=== PATIENT | female | born 1940 | race Caucasian/White ===

== ENCOUNTER 2017-01-27 09:12 | Day surgery (SDC) | payer OTHER, MEDICARE ==
[2017-01-27 09:13] VITALS: BMI 35.9
[2017-01-27] MEDS ORDERED: LIDOCAINE HCL/PF 2% SDV 5ML VIAL ONE (09:36)
[2017-01-27] MEDS ORDERED: PROPOFOL 40 ML ONE (09:36)
[2017-01-27 10:44] VITALS: TEMP 97.9
[2017-01-27 11:59] VITALS: BP 120/65; PULSE 84
--- NOTE | 2017-01-28 11:26 | PATH ---
Surgical Pathology Report Patient Name: SHAKA BAHENA [facility] Rec. #: [id number] /Age/Gender: 1940 (Age: 76) / F Account: [id number] Location: ASU-ENDOSCOPY Taken: 01/27/2017 Received: 01/27/2017 Reported: 01/28/2017 Physicians: Marcel Haley D.O. Specimen(s) Received A: POLYPS PROXIMAL TRANSVERSE COLON SNARE & BX. B: BX DISTAL TRANSVERSE COLON POLYP C: BX SIGMOID COLON POLYP D: BX RECTAL SIGMOID POLYP (COLD SNARE) E: POLYP RECTUM (COLD SNARE) Clinical History Proctitis, denies blood Diverticulosis, colon polyps, hemorrhoids Final Diagnosis A. COLON, PROXIMAL TRANSVERSE, BIOPSY: SESSILE SERRATED POLYP. B. COLON, DISTAL TRANSVERSE, BIOPSY: TUBULAR ADENOMA. C. COLON, SIGMOID, BIOPSY: HYPERPLASTIC POLYP. D. COLON, RECTAL SIGMOID, BIOPSY HYPERPLASTIC POLYP. E. RECTUM, BIOPSY TUBULAR ADENOMA. Comment: Sessile serrated polyps are not dysplastic (adenomatous). They share morphologic features with hyperplastic polyps and, in the past, have been referred to as such. However, recent studies indicate that they harbor BRAF mutations and may represent neoplastic precursors to a subset of sporadic, microsatellite unstable colon cancers. They are generally treated and followed similar to colonic adenomas. CHANDU Bautista and MEAGAN Goncalves Gastroenterology 2010, 139(5):[id number]. Electronically Signed Rubin Segura M.D. Gross Description A. Received in formalin, labeled "polyps proximal transverse colon (snared and biopsy)" are 3 clemens, irregular portions of soft tissue measuring 0.1-0.2 cm. in greatest dimension. The specimens are submitted in toto in one cassette. B. Received in formalin, labeled "biopsy distal transverse colon polyp" is a clemens, irregular portion of soft tissue measuring 0.3 cm. in greatest dimension. The specimen is submitted in toto in one cassette. C. Received in formalin, labeled "biopsy sigmoid colon polyp" is a clemens, irregular portion of soft tissue measuring 0.2 cm. in greatest dimension. The specimen is submitted in toto in one cassette. D. Received in formalin, labeled "rectal sigmoid polyp (cold snare)" is a clemens, irregular portion of soft tissue measuring 0.2 cm. in greatest dimension. The specimen is submitted in toto in one cassette. E. Received in formalin, labeled "polyp rectum (cold snare)" is a clemens, irregular portion of soft tissue measuring 0.1 cm. in greatest dimension. The specimen is submitted in toto in one cassette. [facility]/01/27/2017 [facility]/01/27/2017
[2017-02-02 08:06] LABS: IMMUNOGLOBULIN A QN 206 mg/dL (64-422)
== END 2017-01-27 11:45 | disposition home or self-care (01) ==
LOC: JASU-ENDO 09:12
PROVIDERS: ATTEND Internal Medicine Gastroenterology
PROC: 0DBN8ZX Excision of Sigmoid Colon, Via Natural or Artificial Opening Endoscopic, Diagnostic (ICD-10-PCS; 2017-01-27)
PROC: 0DBE8ZX Excision of Large Intestine, Via Natural or Artificial Opening Endoscopic, Diagnostic (ICD-10-PCS; 2017-01-27)
PROC: 3E0H8GC Introduction of Other Therapeutic Substance into Lower GI, Via Natural or Artificial Opening Endoscopic (ICD-10-PCS; 2017-01-27)
PROC: 0DBL8ZX Excision of Transverse Colon, Via Natural or Artificial Opening Endoscopic, Diagnostic (ICD-10-PCS; principal; 2017-01-27 09:00)
DX: Z12.11 Encounter for screening for malignant neoplasm of colon (principal); Z80.0 Family history of malignant neoplasm of digestive organs; K57.30 Diverticulosis of large intestine without perforation or abscess without bleeding; D12.7 Benign neoplasm of rectosigmoid junction; D12.5 Benign neoplasm of sigmoid colon; D12.3 Benign neoplasm of transverse colon; K64.8 Other hemorrhoids
CPT/HCPCS: 36415; 82784; 83516; 88305-TC

== ENCOUNTER 2017-07-29 15:50 | Inpatient (IN) | payer OTHER, MEDICARE ==
--- NOTE | 2017-07-29 17:32 | PDOC ---
Attending Attestation - Resident Resident Name: Talat Mosquera - ED Attending Attestation I have performed the following: I have examined & evaluated the patient, The case was reviewed & discussed with the resident, I agree w/resident's findings & plan, Exceptions are as noted - HPI HPI: 07/29/17 17:29 77yo F hx breast ca in remission, HTN, HL p/w decreased PO appetite, dry heaving for 1 week. Saw PCP yesterday who sent her to ED after she had a WBC 1.3 and platelets of 81. On follow up today, pt's PMD advised her to present to the ED for admission for work up of her pancytopenia. Pt denies fevers, chills, cp, sob, abd pain, le edema, rash, headache, focal weakness or numbness. - Physicial Exam PE: 07/29/17 19:01 GENERAL: Awake, alert, and fully oriented, in no acute distress HEAD: No signs of trauma EYES: PERRLA, EOMI, sclera anicteric, conjunctiva clear ENT: Auricles normal inspection, hearing grossly normal, nares patent, oropharynx clear without exudates. Moist mucosa NECK: Normal ROM, supple, no lymphadenopathy, JVD, or masses LUNGS: Breath sounds equal, clear to auscultation bilaterally. No wheezes, and no crackles HEART: Regular rate and rhythm, normal S1 and S2, no murmurs, rubs or gallops ABDOMEN: Soft, nontender, normoactive bowel sounds. No guarding, no rebound. No masses EXTREMITIES: Normal range of motion, no edema. No clubbing or cyanosis. No cords, erythema, or tenderness NEUROLOGICAL: Normal speech, cranial nerves intact, negative pronator drift, 5/ 5 strength in all 4 extremities, normal sensation to light touch in all 4 extremities, normal cerebellar exam, normal gait, normal reflexes and tone SKIN: Warm, Dry, normal turgor, no rashes or lesions noted. - Medical Decision Making 07/29/17 18:00 77yo F hx breast ca in remission p/w pancytopenia and for admission for work up. Vitals unremarkable. Exam unremarkable. Plan: -labs -monitor -c/s ID -admit 07/29/17 19:[address] Barker for further management. Case discussed in detail with admitting physician including history, physical exam and ancillary studies. Admitting physician has assumed care for the patient, will follow all pending diagnostics and will complete the evaluation and treatment. Heart Score/ECG Review #1 07/29/17 18:59 NSR, rate 77, normal axis, normal intervals, no ESTRELLA
[2017-07-29] MEDS ORDERED: SODIUM CHLORIDE 0.9% 1000 ML INFUS.BAG IV ONE (17:34)
--- NOTE | 2017-07-29 17:41 | PDOC ---
History of Present Illness - General History Source: Patient Exam Limitations: No Limitations - History of Present Illness Initial Comments: 07/29/17 17:54 The patient is a 77F with a PMH of breast CA, HTN, HLD who was sent here by her PCP for an admission/workup. The patient came to [facility] ED yesterday after being sent by her PCP's office for a WBC of 1.3 and a PLT of 81. Repeat labs yesterday confirmed these findings. She was discharged home and called by her PCP, Dr. Barker, this morning after he spoke with a dry cure worker who wants the patient to stay in the hospital for workup to find out why she is pancytopenic. The patient has been feeling unwell for the past week, hasn't been able to eat for a few days and can't hold anything down. She admits to dry heaving but no vomiting. PCP: Mj <Talat Mosquera - Last Filed: 07/29/17 18:21> <Alec Olmstead - Last Filed: 07/29/17 19:00> - General Chief Complaint: Vomiting/Diarrhea Stated Complaint: REVISIT/ DIZZINESS (PCP SENT) Time Seen by Provider: 07/29/17 16:55 Past History - Past Medical History Cancer: Yes (LEFT BREAST) HTN: Yes Hypercholesterolemia: Yes - Surgical History Orthopedic Surgery: Yes (B/L TKR, B/L THR) - Psycho/Social/Smoking Cessation Hx Anxiety: No Suicidal Ideation: No Smoking Status: Yes Smoking History: Current every day smoker Years of Tobacco Use: 50 Have you smoked in the past 12 months: Yes Number of Cigarettes Smoked Daily: 7 Cigars Per Day: 0 Information on smoking cessation initiated: No Hx Alcohol Use: No Drug/Substance Use Hx: No Substance Use Type: None <Talat Mosquera - Last Filed: 07/29/17 18:21> <Alec Olmstead - Last Filed: 07/29/17 19:00> - Past Medical History Allergies/Adverse Reactions: Allergies Allergy/AdvReac Type Severity Reaction Status Date / Time No Known Drug Allergies Allergy Verified 07/29/17 17:51 bees Allergy Uncoded 07/29/17 16:04 tape Allergy Uncoded 07/29/17 16:04 Home Medications: Ambulatory Orders Clonazepam [Klonopin -] 1 mg PO HS 01/17/12 Sertraline HCl [Zoloft] 100 mg PO HS 01/17/12 Atenolol [Tenormin -] 25 mg PO DAILY 07/15/13 Aspirin [ASA -] 81 mg PO DAILY 07/16/13 Fenofibrate Nanocrystallized [Tricor] 60 mg PO DAILY 07/16/13 Omeprazole [Prilosec (RX)] 40 mg PO ASDIR 02/23/15 Amlodipine Besylate [Norvasc -] 5 mg PO DAILY 01/27/17 Famotidine [Pepcid -] 40 mg PO ASDIR 07/29/17 Review of Systems - Review of Systems Able to Perform ROS?: Yes Is the patient limited Grenadian proficient: No Constitutional: No: Chills, Fever Respiratory: No: Cough, Shortness of Breath Cardiac (ROS): No: Chest Pain ABD/GI: No: Constipated, Diarrhea, Nausea, Vomiting, Other (abd pain) : No: Burning, Dysuria Neurological: No: Headache, Numbness, Tingling, Weakness <Talat Mosquera - Last Filed: 07/29/17 18:21> *Physical Exam - Vital Signs Last Vital Signs Temp Pulse Resp BP Pulse Ox 99 F 84 17 104/57 95 07/29/17 16:04 07/29/17 16:04 07/29/17 16:04 07/29/17 16:04 07/29/17 16:45 - Physical Exam General Appearance: Yes: Nourished, Appropriately Dressed, Obese HEENT: positive: Normal Voice, Hearing Grossly Normal Respiratory/Chest: positive: Lungs Clear, Normal Breath Sounds. negative: Chest Tender, Labored Respiration, Rapid RR, Decreased Breath Sounds, Paradoxal Breathing, Crackles, Rales, Stridor, Wheezing Cardiovascular: positive: Regular Rhythm, Regular Rate, S1, S2. negative: Diastolic Murmur, Systolic Murmur Gastrointestinal/Abdominal: positive: Flat, Soft. negative: Tender, Distended, Guarding, Rebound, Tenderness Extremity: negative: Coldness, Cyanosis, Calf Tenderness, Erythema Integumentary: positive: Dry, Warm. negative: Clammy, Swelling, Ecchymosis Neurologic: positive: Fully Oriented, Alert, Normal Mood/Affect, Normal Response , Motor Strength 5/5 <Talat Mosquera - Last Filed: 07/29/17 18:21> - Vital Signs Last Vital Signs Temp Pulse Resp BP Pulse Ox 99 F 84 17 104/57 95 07/29/17 16:04 07/29/17 16:04 07/29/17 16:04 07/29/17 16:04 07/29/17 16:45 <Alec Olmstead - Last Filed: 07/29/17 19:00> ED Treatment Course - LABORATORY CBC & Chemistry Diagram: 07/29/17 18:00 07/29/17 18:00 - RADIOLOGY Radiology Studies Ordered: Category Date Time Status CHEST X-RAY PORTABLE* [RAD] Stat Radiology 07/29/17 17:34 Ordered <Talat Mosquera - Last Filed: 07/29/17 18:21> - LABORATORY CBC & Chemistry Diagram: 07/29/17 18:00 07/29/17 18:00 - ADDITIONAL ORDERS Additional order review: Laboratory Results 07/29/17 07/29/17 07/29/17 18:00 18:00 18:00 PT with INR 10.90 INR 0.99 PTT (Actin FS) 29.0 VBG pH 7.36 POC VBG pCO2 45.2 POC VBG pO2 49.8 H Mixed VBG HCO3 24.7 Blood Type Cancelled Antibody Screen Cancelled Spec Expiration Date Cancelled 07/29/17 18:00 RBC 4.16 MCV 90.8 MCHC 34.4 RDW 14.2 MPV 10.4 Neutrophils % 52.1 D Lymphocytes % 33.0 D Monocytes % 13.5 H D Eosinophils % 0.2 Basophils % 1.2 D <Alec Olmstead - Last Filed: 07/29/17 19:00> Medical Decision Making - Medical Decision Making 07/29/17 18:02 The patient is a 77F that presented with thrombocytopenia and leukopenia yesterday. I have spoken with Dr. Barker who wants the patient admitted. The order has been placed. A page to Dr. Cooney (or partner) has been placed. Sepsis workup has been followed. Will reassess when labs return. 07/29/17 18:21 I have spoken with Dr. Cooney, hematology, who will see the patient tomorrow. He wants B12, folate, FT4, and TSH ordered. I have ordered these. He also suggests an ID consult. <Talat Mosquera - Last Filed: 07/29/17 18:21> *DC/Admit/Observation/Transfer - Discharge Dispostion Admit: Yes <Talat Mosquera - Last Filed: 07/29/17 18:21> <Alec Olmstead - Last Filed: 07/29/17 19:00> Diagnosis at time of Disposition: Thrombocytopenia Leukopenia Qualifiers: Leukopenia type: unspecified Qualified Code(s): D72.819 - Decreased white blood cell count, unspecified - Referrals Referrals: Jimenez Barker MD [Primary Care Provider] -
[2017-07-29 18:11] LABS: EOSINOPHIL 0.2 % (0-4.5)
[2017-07-29 18:13] LABS: BASOPHIL 1.2 % (0-2.0); MCH 31.2 pg (25.7-33.7); MCHC 34.4 g/dl (32.0-36.0); MEAN CELL VOLUME 90.8 fl (80-96); MEAN PLT VOLUME 10.4 fl (7.5-11.1); NEUTROPHILS 52.1 % (42.8-82.8); PLATELET COUNT 79 K/MM3 (134-434); RDW 14.2 % (11.6-15.6)
[2017-07-29] MEDS ORDERED: CEFEPIME HCL 2 GM VIAL (RESTRICTED TO ID) IVPB ONE (18:25)
[2017-07-29 18:28] LABS: INR 0.99 (0.82-1.09); PROTHROMBIN TIME (PATIENT) 10.9 SEC (9.98-11.88)
[2017-07-29 18:29] LABS: VENOUS PH 7.36 (7.32-7.42)
[2017-07-29 18:30] LABS: VENOUS BLOOD GAS HCO3 24.7 meq/L (19-25)
[2017-07-29 18:39] LABS: ALBUMIN 3.7 g/dl (3.4-5.0); ANION GAP 7 (8-16); BILIRUBIN,TOTAL 0.6 mg/dL (0.2-1.0); CALCIUM 8.6 mg/dL (8.5-10.1); CO2 26 mmol/L (21-32); CREATININE 1.1 mg/dL (0.55-1.02); GLUCOSE,RANDOM 91 mg/dL (74-106); SGOT/AST 43 U/L (15-37); SGPT/ALT 28 U/L (12-78); TOT PROT 6.7 g/dl (6.4-8.2)
[2017-07-29 18:42] LABS: ALK PHOS 52 U/L (45-117); CPK 192 IU/L (26-192); TROPONIN I 0.02 ng/ml (0.00-0.05)
[2017-07-29] MEDS ORDERED: CEFEPIME 1 GM/100 ML BAG PRE-DOCKED IVPB ONE (19:30)
[2017-07-29 19:31] LABS: ALBUMIN 3.6 g/dl (3.4-5.0); ALK PHOS 51 U/L (45-117); ANION GAP 5 (8-16); BILIRUBIN,TOTAL 0.6 mg/dL (0.2-1.0); CALCIUM 8.8 mg/dL (8.5-10.1); CO2 28 mmol/L (21-32); CREATININE 1.1 mg/dL (0.55-1.02); GLUCOSE,RANDOM 89 mg/dL (74-106); SGOT/AST 41 U/L (15-37); SGPT/ALT 28 U/L (12-78); TOT PROT 6.8 g/dl (6.4-8.2)
[2017-07-29 19:37] LABS: FREE T4 1.13 ng/dl (0.76-1.46); THYROID STIMULATING HORMONE 1.27 uIU/ml (0.358-3.74)
[2017-07-29 19:49] LABS: URINE APPEARANCE SLCLOUDY; URINE BILIRUBIN NEGATIVE (NEGATIVE); URINE BLOOD NEGATIVE (NEGATIVE); URINE COLOR AMBER; URINE GLUCOSE (UA) NEGATIVE (NEGATIVE); URINE KETONE NEGATIVE (NEGATIVE); URINE LEUK ESTERASE NEGATIVE (NEGATIVE); URINE NITRITE NEGATIVE (NEGATIVE); URINE PROTEIN NEGATIVE (NEGATIVE)
[2017-07-29 20:42] VITALS: BMI 32.2
[2017-07-30] MEDS ORDERED: CEFEPIME HCL 1 GM VIAL (RESTRICTED TO ID) ONE ×3 (01:50→18:25)
[2017-07-30] MEDS ORDERED: DEXTROSE 5%-WATER 100 ML IVPB ONE ×3 (01:50→18:25)
[2017-07-30] MEDS ORDERED: CEFEPIME HCL 1 GM VIAL (RESTRICTED TO ID) IVPB SCH (02:00)
[2017-07-30] MEDS: CEFEPIME 1 GM in DEXTROSE 5%-WATER 100 ML IVPB SCH ×3 (02:21→18:28)
[2017-07-30 07:29] LABS: BASOPHIL 0.5 % (0-2.0); EOSINOPHIL 0.3 % (0-4.5); MCH 31.1 pg (25.7-33.7); MCHC 34.1 g/dl (32.0-36.0); MEAN PLT VOLUME 9.4 fl (7.5-11.1); NEUTROPHILS 45.4 % (42.8-82.8); PLATELET COUNT 71 K/MM3 (134-434); RDW 13.7 % (11.6-15.6); WHITE BLOOD COUNT 2.3 K/mm3 (4.0-10.0)
[2017-07-30 08:04] LABS: INR 1.04 (0.82-1.09); PROTHROMBIN TIME (PATIENT) 11.4 SEC (9.98-11.88)
[2017-07-30 08:06] LABS: ACTIVATED PTT 27.8 SECONDS (26.9-34.4); ALBUMIN 3.3 g/dl (3.4-5.0); ANION GAP 9 (8-16); BILIRUBIN,TOTAL 0.9 mg/dL (0.2-1.0); CALCIUM 8.3 mg/dL (8.5-10.1); CO2 26 mmol/L (21-32); CREATININE 1.2 mg/dL (0.55-1.02); GLUCOSE,RANDOM 83 mg/dL (74-106); LDH 207 U/L (84-246); SGOT/AST 41 U/L (15-37); SGPT/ALT 28 U/L (12-78); TOT PROT 6.1 g/dl (6.4-8.2)
[2017-07-30 09:06] LABS: ALK PHOS 48 U/L (45-117)
--- NOTE | 2017-07-30 11:24 | CON.ID ---
Consult Consult Specialty:: INFECTIOUS DISEASE Reason for Consultation:: weakness, low wbc/platelet - History of Present Illness History of Present Illness: 77 y.o. female with history of Breast CA s/p Lt lumpectomy, HTN, HLD, b/l THR, b. TKR admitted for leukopenia/thrombocytopenia noted by PMD during office visit. Pt states she has not been feeling well for the past week. States she had a temp of 100F at home. Denies chills, sore throat, h/a, shortness of breath but +dry cough for past couple of weeks. Had some nausea and a loose BM but resolved. Denies sick contact or recent travel. - History Source History Provided By: Patient Limitations to Obtaining History: No Limitations - Past Medical History FRAME BANDER: No: Alzheimer's, CVA, Dementia, Migraine, Multiple Sclerosis, Peripheral Neuropathy, Parkinson's, Seizure, Syncope, TIA, Vertigo, Other Cardio/Vascular: No: AFIB, Aneurysm, Aortic Insufficiency, Aortic Stenosis, CAD , CHF, Deep Vein Thrombosis, HTN, Hyperlipdemia, [place], Mitral Insufficiency, Mitral Stenosis, Murmur, Pulmonary Hypertension, Other Pulmonary: No: Asthma, Bronchitis, Cancer, COPD, O2 Dependent, Pneumonia, Previously Intubated, Pulmonary Embolus, Pulmonary Fibrosis, Sleep Apnea, Other Gastrointestinal: No: Ascites, Cancer, Constipation, Crohn's Disease, Diverticulitis, Diverticulosis, Esophageal Varices, Gastritis, GERD, GI Bleed, Hemorrhoids, Hiatal Hernia, Inflamatory Bowel Disease, Irritable Bowel Disease, Pancreatitis, Peptic Ulcer Disease, Ulcerative Colitis, Other Hepatobiliary: No: Cirrhosis, Cholelithiasis, Cholecystitis, Choledocholithiasis , Hepatitis A, Hepatitis B, Hepatitis C, Other ...: No Heme/Onc: No: Anemia, B12 Deficiency, Bleeding Disorder, Cancer, Current Chemotherapy, Current Radiation Therapy, Hemochromatosis, Hypercoaguable State, Myeloproliferative Synd, Sickle Cell Disease, Sickle Cell Trait, Thrombocytopenia, Other Infectious Disease: No: AIDS, C-Diff, Herpes Zoster, HIV, MRSA, STD's, Tuberculosis, VREF, Other Psych: No: Addictions, Anxiety, Bipolar, Depression, Panic, Psychosis, Schizophrenia, Other Musculoskeletal: Yes: Other (b/l THR, b/L TKR) - Past Surgical History Past Surgical History: Yes: Joint Replacement - Alcohol/Substance Use Hx Alcohol Use: No History of Substance Use: reports: None - Smoking History Smoking history: Current every day smoker Have you smoked in the past 12 months: Yes Aproximately how many cigarettes per day: 7 Home Medications - Allergies Allergies/Adverse Reactions: Allergies Allergy/AdvReac Type Severity Reaction Status Date / Time No Known Drug Allergies Allergy Verified 07/29/17 17:51 bees Allergy Uncoded 07/29/17 16:04 tape Allergy Uncoded 07/29/17 16:04 - Home Medications Home Medications: Ambulatory Orders Clonazepam [Klonopin -] 1 mg PO HS 01/17/12 Sertraline HCl [Zoloft] 100 mg PO HS 01/17/12 Atenolol [Tenormin -] 25 mg PO DAILY 07/15/13 Aspirin [ASA -] 81 mg PO DAILY 07/16/13 Fenofibrate Nanocrystallized [Tricor] 60 mg PO DAILY 07/16/13 Omeprazole [Prilosec (RX)] 40 mg PO ASDIR 02/23/15 Amlodipine Besylate [Norvasc -] 5 mg PO DAILY 01/27/17 Famotidine [Pepcid -] 40 mg PO ASDIR 07/29/17 Family Disease History - Family Disease History Family Disease History: Other: Mother (Hodgkins lymphoma), Brother (colon CA), Sister (lung CA) Review of Systems - Review of Systems Constitutional: reports: Weakness Eyes: reports: No Symptoms HENT: reports: No Symptoms Neck: reports: No Symptoms Cardiovascular: reports: No Symptoms Respiratory: reports: Cough (occasional dry cough) Gastrointestinal: reports: Nausea (resolved) Genitourinary: reports: No Symptoms Breasts: reports: Other (Lt breast lumpectomy) Musculoskeletal: reports: No Symptoms Integumentary: reports: No Symptoms Neurological: reports: No Symptoms Endocrine: reports: No Symptoms Hematology/Lymphatic: reports: No Symptoms Psychiatric: reports: No Symptoms Physical Exam Vital Signs: Vital Signs Temperature 98.7 F 07/30/17 09:11 Pulse Rate 86 07/30/17 09:11 Respiratory Rate 18 07/30/17 09:11 Blood Pressure 143/69 07/30/17 09:11 O2 Sat by Pulse Oximetry (%) 98 07/30/17 09:00 Constitutional: Yes: No Distress Eyes: Yes: WNL HENT: Yes: WNL Neck: Yes: WNL Cardiovascular: Yes: Regular Rate and Rhythm Respiratory: Yes: CTA Bilaterally Gastrointestinal: Yes: Normal Bowel Sounds, Soft Renal/: Yes: WNL Breast(s): Yes: Other (Lt lumpectomy) Extremities: Yes: WNL Integumentary: Yes: WNL Neurological: Yes: Alert, Oriented ...Motor Strength: WNL Psychiatric: Yes: Alert, Oriented Labs: CBC, BMP 07/30/17 06:10 07/30/17 06:10 Microbiology 07/29/17 16:39 Influenza Types A,B Antigen ([place]) - Final Nasopharyngeal Swab - Final 07/29/17 16:39 Group A Strep Rapid Antigen - Final Throat Imaging - Results Chest X-ray: Report Reviewed (no infiltrates) Problem List - Problems (1) Leukopenia Code(s): D72.819 - DECREASED WHITE BLOOD CELL COUNT, UNSPECIFIED Qualifiers: Leukopenia type: unspecified Qualified Code(s): D72.819 - Decreased white blood cell count, unspecified (2) Thrombocytopenia Code(s): D69.6 - THROMBOCYTOPENIA, UNSPECIFIED Assessment/Plan Hx of Breast CA/ Lt lumpectomy - Pt is afebrile, clinically appears stable - no obvious infectious etiology noted, suggest order EBV and CMV serology - continue Cefepime for now - f/u pending lab studies - Hematology follow up - continue monitor cbc, temps - maintain on neutropenic isolation discussed with PMD
--- NOTE | 2017-07-30 12:40 | HP ---
Admitting History and Physical - Admission Chief Complaint: Leukopenia/Thrombocytopenia History of Present Illness: is a pleasant 77 y/o female with PMHx of Breast cancer s/p surgery, chemotherapy?, in 1996 treated at [facility], HTN, HLD, a halfway smoker with a 60+ pack/year Hx presenting with a low grade temp at home, recent cough with greenish sputum production. She says she has been overall healthy for the past few years except for this occasional occurence of cough and sputum. She has never been diagnosed with COPD before. Heme/Onc consult as she has been noted to have significant leukopenia/thrombocytopenia on labs. 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: Alzheimer's, CVA, Dementia, Migraine, Multiple Sclerosis, Peripheral Neuropathy, Parkinson's, Seizure, Syncope, TIA, Vertigo, Other Cardiovascular: No: AFIB, Aneurysm, Aortic Insufficiency, Aortic Stenosis, CAD, CHF, Deep Vein Thrombosis, HTN, Hyperlipdemia, [place], Mitral Insufficiency, Mitral Stenosis, Murmur, Pulmonary Hypertension, Other Pulmonary: No: Asthma, Bronchitis, Cancer, COPD, O2 Dependent, Pneumonia, Previously Intubated, Pulmonary Embolus, Pulmonary Fibrosis, Sleep Apnea, Other Gastrointestinal: No: Ascites, Cancer, Constipation, Crohn's Disease, Diverticulitis, Diverticulosis, Esophageal Varices, Gastritis, GERD, GI Bleed, Hemorrhoids, Hiatal Hernia, Inflamatory Bowel Disease, Irritable Bowel Disease, Pancreatitis, Peptic Ulcer Disease, Ulcerative Colitis, Other Hepatobiliary: No: Cirrhosis, Cholelithiasis, Cholecystitis, Choledocholithiasis , Hepatitis A, Hepatitis B, Hepatitis C, Other ...: No Heme/Onc: No: Anemia, B12 Deficiency, Bleeding Disorder, Cancer, Current Chemotherapy, Current Radiation Therapy, Hemochromatosis, Hypercoaguable State, Myeloproliferative Synd, Sickle Cell Disease, Sickle Cell Trait, Thrombocytopenia, Other Infectious Disease: No: AIDS, C-Diff, Herpes Zoster, HIV, MRSA, STD's, Tuberculosis, VREF, Other Psych: No: Addictions, Anxiety, Bipolar, Depression, Panic, Psychosis, Schizophrenia, Other Musculoskeletal: Yes: Other (b/l THR, b/L TKR) - Past Surgical History Past Surgical History: Yes: Joint Replacement - Advance Directives Advance Directives: Yes: Health Care Proxy - Smoking History Smoking history: Current every day smoker Have you smoked in the past 12 months: Yes Aproximately how many cigarettes per day: 7 - Alcohol/Substance Use Hx Alcohol Use: No History of Substance Use: reports: None Home Medications - Allergies Allergies/Adverse Reactions: Allergies Allergy/AdvReac Type Severity Reaction Status Date / Time No Known Drug Allergies Allergy Verified 07/29/17 17:51 bees Allergy Uncoded 07/29/17 16:04 tape Allergy Uncoded 07/29/17 16:04 - Home Medications Home Medications: Ambulatory Orders Clonazepam [Klonopin -] 1 mg PO HS 01/17/12 Sertraline HCl [Zoloft] 100 mg PO HS 01/17/12 Atenolol [Tenormin -] 25 mg PO DAILY 07/15/13 Aspirin [ASA -] 81 mg PO DAILY 07/16/13 Fenofibrate Nanocrystallized [Tricor] 60 mg PO DAILY 07/16/13 Omeprazole [Prilosec (RX)] 40 mg PO ASDIR 02/23/15 Amlodipine Besylate [Norvasc -] 5 mg PO DAILY 01/27/17 Famotidine [Pepcid -] 40 mg PO ASDIR 07/29/17 Family Disease History - Family Disease History Family Disease History: Other: Mother (Hodgkins lymphoma), Brother (colon CA), Sister (lung CA) Review of Systems - Review of Systems Constitutional: reports: Weakness Respiratory: reports: Cough Physical Examination Vital Signs: Vital Signs Temperature 98.7 F 07/30/17 09:11 Pulse Rate 86 07/30/17 09:11 Respiratory Rate 18 07/30/17 09:11 Blood Pressure 143/69 07/30/17 09:11 O2 Sat by Pulse Oximetry (%) 98 07/30/17 09:00 Constitutional: Yes: Well Nourished Eyes: Yes: WNL HENT: Yes: WNL, Atraumatic, Normocephalic Neck: Yes: WNL, Supple, Trachea Midline Cardiovascular: Yes: WNL, Regular Rate and Rhythm Respiratory: Yes: Diminished Gastrointestinal: Yes: WNL Breast(s): Yes: WNL Musculoskeletal: Yes: WNL Extremities: Yes: WNL Integumentary: Yes: WNL Neurological: Yes: WNL, Alert, Oriented Labs: CBC, BMP 07/30/17 06:10 07/30/17 06:10 Assessment/Plan 77 y/o female with Hx of breast cancer Rx with lumpectomy +/- chemotherapy now with pancytopenia, cough and sputum production. Chest x ray shows prominent vascular markings and increased haziness suggestive of possible infiltrate at left costo-phrenic angle. 1. pancytopenia -CBC shows Hgb of 11.9, plts 71, WBC count of 2.3, she has pancytopenia on labs with a normal thyroid panel, B12 and folate -recommend checking SPEP/ UPEP, hepatitis, HIV labs in addition -follow-up in clinic 1-2 weeks after discharge to follow-up on counts and if still pancytopenic, needs a bone marrow biopsy to work-up for MDS, mets etc -patient given contact info to make an appointment. She understands and agrees with the plan 2. Left lower lobe PNA -Bcx and sputum Cx -Antibiotics per ID - as she has no major systemic s/o infection, she can be switched to oral Abx and followed outpatient as well Will continue to follow while inpatient
[2017-07-30] MEDS ORDERED: ACETAMINOPHEN 325 MG TABLET (FP) PO PRN (12:41)
--- NOTE | 2017-07-30 12:48 | HP ---
Admitting History and Physical - Primary Care Physician PCP: Jimenez Barker - Admission Chief Complaint: Overall weakness slight cough for 1 week with low grade temps at home. History of Present Illness: Patient called me twice this week with complaints of not feeling well, some coughing and low grade temps. I had her come to my office but found nothing specific on her exam so I sent her for lab and CXR and abd Xray at the hospital. I was called several hours later and told her WBC count was 1,300 and platelet count of 80,000. I advised coming back to the hospital for admission. No chills and preliminary tests in ER not revealing the cause of these changes. History Source: Patient Limitations to Obtaining History: No Limitations - Past Medical History Cardiovascular: Yes: HTN, Hyperlipdemia Pulmonary: Yes: Bronchitis Gastrointestinal: Yes: GERD ...: No ...: 2 ...Para: 2 Psych: Yes: Anxiety Musculoskeletal: Yes: Osteoarthritis, Other (b/l THR, b/L TKR) - Past Surgical History Past Surgical History: Yes: Joint Replacement (Both hips and knees) Additional Past Surgical History: Lumpectomy left breast - Advance Directives Advance Directives: Yes: Health Care Proxy (form not available; daughter Richmond is primary agent) - Smoking History Smoking history: Current every day smoker Have you smoked in the past 12 months: Yes Aproximately how many cigarettes per day: 7 - Alcohol/Substance Use Hx Alcohol Use: No History of Substance Use: reports: None - Social History Usual Living Arrangement: Yes: Alone ADL: Independent Occupation: Retired History of Recent Travel: No Home Medications - Allergies Allergies/Adverse Reactions: Allergies Allergy/AdvReac Type Severity Reaction Status Date / Time No Known Drug Allergies Allergy Verified 07/29/17 17:51 bees Allergy Uncoded 07/29/17 16:04 tape Allergy Uncoded 07/29/17 16:04 - Home Medications Home Medications: Ambulatory Orders Clonazepam [Klonopin -] 1 mg PO HS 01/17/12 Sertraline HCl [Zoloft] 100 mg PO HS 01/17/12 Atenolol [Tenormin -] 25 mg PO DAILY 07/15/13 Aspirin [ASA -] 81 mg PO DAILY 07/16/13 Fenofibrate Nanocrystallized [Tricor] 60 mg PO DAILY 07/16/13 Omeprazole [Prilosec (RX)] 40 mg PO ASDIR 02/23/15 Amlodipine Besylate [Norvasc -] 5 mg PO DAILY 01/27/17 Famotidine [Pepcid -] 40 mg PO ASDIR 07/29/17 Family Disease History - Family Disease History Family Disease History: Diabetes: Mother (Hodgkins lymphoma), Brother (colon CA) , Other: Mother, Brother, Sister (lung CA) Review of Systems - Review of Systems Constitutional: reports: Fever Eyes: reports: No Symptoms HENT: reports: Nasal Congestion Cardiovascular: denies: Chest Pain Respiratory: reports: Cough Gastrointestinal: reports: Bloating Genitourinary: denies: Burning, Discharge Musculoskeletal: reports: Extremity Pain, Muscle Pain (legs) Integumentary: reports: No Symptoms Neurological: reports: No Symptoms Endocrine: reports: No Symptoms Hematology/Lymphatic: denies: Easily Bruised, Excessive Bleeding, Swollen Glands Psychiatric: reports: Anxiety Physical Examination Vital Signs: Vital Signs Temperature 98.7 F 07/30/17 09:11 Pulse Rate 86 07/30/17 09:11 Respiratory Rate 18 07/30/17 09:11 Blood Pressure 143/69 07/30/17 09:11 O2 Sat by Pulse Oximetry (%) 98 07/30/17 09:00 Constitutional: Yes: Calm, Pallor Eyes: Yes: Conjunctiva Clear Neck: No: Lymphadenopathy Cardiovascular: Yes: Regular Rate and Rhythm Respiratory: Yes: Regular, Rhonchi (few scattered rhonchi) Gastrointestinal: No: Hyperactive Bowel Sounds, Tenderness Renal/: No: [place] Present Musculoskeletal: Yes: Joint Stiffness Extremities: No: Erythema Edema: No Integumentary: Yes: WNL Neurological: Yes: Alert, Oriented Labs: CBC, BMP 07/30/17 06:10 07/30/17 06:10 Imaging - Results Chest X-ray: Report Reviewed X-ray: Report Reviewed Assessment/Plan Hematology referral for leukopenia and thrombocytopenia cause. ID consult noted. B12 and Folate WNL Flu swab -negative Strep -negative CXR Normal Hold ASA F/U lab
[2017-07-30] MEDS: RANITIDINE HCL 150 MG TABLET (FP) PO SCH (16:17)
[2017-07-30] MEDS: SERTRALINE HCL 50 MG TABLET (FP) PO SCH (16:17)
[2017-07-30] MEDS: ATENOLOL 25 MG TABLET (FP) PO SCH (16:17)
[2017-07-30] MEDS: clonazePAM 0.5 MG TABLET PO SCH (21:59)
[2017-07-31] MEDS ORDERED: CEFEPIME HCL 1 GM VIAL (RESTRICTED TO ID) ONE ×3 (01:18→17:37)
[2017-07-31] MEDS ORDERED: DEXTROSE 5%-WATER 100 ML IVPB ONE ×3 (01:18→17:37)
[2017-07-31] MEDS: CEFEPIME 1 GM in DEXTROSE 5%-WATER 100 ML IVPB SCH ×3 (02:27→17:41)
[2017-07-31 07:37] LABS: MCH 31.3 pg (25.7-33.7); MCHC 34.5 g/dl (32.0-36.0); MEAN CELL VOLUME 90.8 fl (80-96); MEAN PLT VOLUME 9.1 fl (7.5-11.1); PLATELET COUNT 77 K/MM3 (134-434); RDW 13.6 % (11.6-15.6)
[2017-07-31 08:09] LABS: ANION GAP 7 (8-16); CALCIUM 8.5 mg/dL (8.5-10.1); CO2 26 mmol/L (21-32); CREATININE 0.9 mg/dL (0.55-1.02); GLUCOSE,RANDOM 88 mg/dL (74-106)
[2017-07-31 08:58] LABS: METAMYELOCYTE 2 % (0-2); MYELOCYTE 1 % (0-2); PLATELET ESTIMATE DECREASED (NORMAL); TOTAL CELLS COUNTED 100
[2017-07-31 08:59] LABS: REACTIVE LYMPHOCYTES 5 % (0-80)
[2017-07-31] MEDS: ATENOLOL 25 MG TABLET (FP) PO SCH (09:13)
[2017-07-31] MEDS: RANITIDINE HCL 150 MG TABLET (FP) PO SCH (09:13)
[2017-07-31] MEDS: SERTRALINE HCL 50 MG TABLET (FP) PO SCH (09:13)
--- NOTE | 2017-07-31 13:40 | PN ---
Progress Note, Physician Chief Complaint: Worried about her condition and low WBC and platelets. History of Present Illness: Patient had a sudden drop in WBC to 1,300 and Platlets to 81,000 when she had stat lab tests afternoon after coming to the office for low grade temps and cough and upset stomach. Her WBC have risen slightly to 3,000 but platelets remain low. Seen by marissa DIXON and recommended several tested but not ordered by her. I will place orders. Cough better. She was placed on IV antibiotics but no discreet infiltrate noted on CXR. - Current Medication List Current Medications: Active Medications Acetaminophen (Tylenol -) 650 mg PO Q6H PRN PRN Reason: FEVER OR PAIN Atenolol (Tenormin -) 25 mg PO DAILY [facility] Last Admin: 07/31/17 09:13 Dose: 25 mg Clonazepam (Klonopin -) 1 mg PO HS [facility] Last Admin: 07/30/17 21:59 Dose: 1 mg Cefepime HCl 1 gm/ Dextrose 100 mls @ 200 mls/hr IVPB Q8H-IV [facility] Last Admin: 07/31/17 09:13 Dose: 200 mls/hr Ranitidine HCl (Zantac -) 150 mg PO DAILY [facility] Last Admin: 07/31/17 09:13 Dose: 150 mg Sertraline HCl (Zoloft -) 50 mg PO DAILY [facility] Last Admin: 07/31/17 09:13 Dose: 50 mg - Objective Vital Signs: Vital Signs Temperature 97.8 F 07/31/17 13:30 Pulse Rate 58 L 07/31/17 13:30 Respiratory Rate 18 07/31/17 13:30 Blood Pressure 135/66 07/31/17 13:30 O2 Sat by Pulse Oximetry (%) 98 07/31/17 09:00 Constitutional: Yes: Calm, Pallor Eyes: Yes: Conjunctiva Clear Cardiovascular: Yes: Regular Rate and Rhythm Respiratory: Yes: Diminished. No: Rales, Rhonchi Gastrointestinal: Yes: Soft Genitourinary: No: M[place]y Present Edema: No Integumentary: Yes: WNL Neurological: Yes: Alert, Oriented Labs: CBC, BMP 07/31/17 06:10 07/31/17 06:10 INR, PTT INR 1.04 (0.82-1.09) 07/30/17 06:10 Problem List - Problems (1) Leukopenia Assessment/Plan: Admitted with WBC of 1,300. Now 3,000 To follow. Code(s): D72.819 - DECREASED WHITE BLOOD CELL COUNT, UNSPECIFIED Qualifiers: Leukopenia type: unspecified Qualified Code(s): D72.819 - Decreased white blood cell count, unspecified (2) Thrombocytopenia Assessment/Plan: Still low at 77,000. Repeat ordered. Code(s): D69.6 - THROMBOCYTOPENIA, UNSPECIFIED (3) GERD (gastroesophageal reflux disease) Assessment/Plan: On Rx. Code(s): K21.9 - GASTRO-ESOPHAGEAL REFLUX DISEASE WITHOUT ESOPHAGITIS (4) Acute bronchitis Assessment/Plan: On IV antibiotics Code(s): J20.9 - ACUTE BRONCHITIS, UNSPECIFIED
--- NOTE | 2017-07-31 16:29 | PN ---
Progress Note, Physician History of Present Illness: Pt states she feels well. No specific complaints. No cough/dyspnea, denies abd pain/n/v/d or fever. Had 2 soft BMs today but no abd cramping. - Current Medication List Current Medications: Active Medications Acetaminophen (Tylenol -) 650 mg PO Q6H PRN PRN Reason: FEVER OR PAIN Atenolol (Tenormin -) 25 mg PO DAILY [facility] Last Admin: 07/31/17 09:13 Dose: 25 mg Clonazepam (Klonopin -) 1 mg PO HS [facility] Last Admin: 07/30/17 21:59 Dose: 1 mg Cefepime HCl 1 gm/ Dextrose 100 mls @ 200 mls/hr IVPB Q8H-IV [facility] Last Admin: 07/31/17 09:13 Dose: 200 mls/hr Ranitidine HCl (Zantac -) 150 mg PO DAILY [facility] Last Admin: 07/31/17 09:13 Dose: 150 mg Sertraline HCl (Zoloft -) 50 mg PO DAILY [facility] Last Admin: 07/31/17 09:13 Dose: 50 mg - Objective Vital Signs: Vital Signs Temperature 97.8 F 07/31/17 13:30 Pulse Rate 58 L 07/31/17 13:30 Respiratory Rate 18 07/31/17 13:30 Blood Pressure 135/66 07/31/17 13:30 O2 Sat by Pulse Oximetry (%) 98 07/31/17 09:00 Constitutional: Yes: No Distress Eyes: Yes: WNL HENT: Yes: WNL Neck: Yes: Supple Cardiovascular: Yes: Regular Rate and Rhythm Respiratory: Yes: CTA Bilaterally Gastrointestinal: Yes: Normal Bowel Sounds, Soft Genitourinary: Yes: WNL Musculoskeletal: Yes: WNL Extremities: Yes: WNL Integumentary: Yes: WNL Neurological: Yes: Alert, Oriented Psychiatric: Yes: Alert, Oriented Labs: CBC, BMP 07/31/17 06:10 07/31/17 06:10 INR, PTT INR 1.04 (0.82-1.09) 07/30/17 06:10 Microbiology 07/29/17 16:39 Throat Culture - Final Throat NO BETA HEMOLYTIC STREPTOCOCCI ISOLATED Group A Strep Rapid Antigen - Final 07/29/17 21:59 Blood Culture - Preliminary Blood - Peripheral Venous NO GROWTH OBTAINED AFTER 24 HOURS, INCUBATION TO CONTINUE FOR 4 DAYS. 07/29/17 21:59 Blood Culture - Preliminary Blood - Peripheral Venous NO GROWTH OBTAINED AFTER 24 HOURS, INCUBATION TO CONTINUE FOR 4 DAYS. Problem List - Problems (1) Leukopenia Code(s): D72.819 - DECREASED WHITE BLOOD CELL COUNT, UNSPECIFIED Qualifiers: Leukopenia type: unspecified Qualified Code(s): D72.819 - Decreased white blood cell count, unspecified (2) Thrombocytopenia Code(s): D69.6 - THROMBOCYTOPENIA, UNSPECIFIED Assessment/Plan wbc slightly improved but low, platelets remain low Afebrile f/u viral studies sent will consider d/c antibiotics if remains stable continue monitor cbc, vitals
[2017-07-31] MEDS: clonazePAM 0.5 MG TABLET PO SCH (21:43)
[2017-08-01] MEDS ORDERED: DEXTROSE 5%-WATER 100 ML IVPB ONE ×2 (01:19→09:16)
[2017-08-01] MEDS ORDERED: CEFEPIME HCL 1 GM VIAL (RESTRICTED TO ID) ONE ×2 (01:19→09:16)
[2017-08-01] MEDS: CEFEPIME 1 GM in DEXTROSE 5%-WATER 100 ML IVPB SCH ×2 (01:33→09:20)
[2017-08-01 07:02] LABS: BASOPHIL 0.5 % (0-2.0); EOSINOPHIL 0.9 % (0-4.5); MCH 30.7 pg (25.7-33.7); MCHC 33.6 g/dl (32.0-36.0); MEAN CELL VOLUME 91.3 fl (80-96); MEAN PLT VOLUME 9.5 fl (7.5-11.1); NEUTROPHILS 55.8 % (42.8-82.8); PLATELET COUNT 102 K/MM3 (134-434); RDW 13.3 % (11.6-15.6); WHITE BLOOD COUNT 3.2 K/mm3 (4.0-10.0)
[2017-08-01 09:17] LABS: ERYTHROCYTE SEDIMENTATION RATE 23 mm/hr (0-30)
[2017-08-01] MEDS: ATENOLOL 25 MG TABLET (FP) PO SCH (09:20)
[2017-08-01] MEDS: RANITIDINE HCL 150 MG TABLET (FP) PO SCH (09:22)
[2017-08-01] MEDS: SERTRALINE HCL 50 MG TABLET (FP) PO SCH (09:22)
[2017-08-01 14:16] VITALS: BP 142/72; PULSE 69; TEMP 97.9
--- NOTE | 2017-08-01 16:57 | EKG ---
Test Reason : Blood Pressure : / mmHG Vent. Rate : 077 BPM Atrial Rate : 077 BPM P-R Int : 172 ms QRS Dur : 082 ms QT Int : 388 ms P-R-T Axes : 043 -03 046 degrees QTc Int : 439 ms NORMAL SINUS RHYTHM CANNOT RULE OUT INFERIOR INFARCT , AGE UNDETERMINED ABNORMAL ECG WHEN COMPARED WITH ECG OF 28-JUL-2017 21:42, T WAVE VARIATION Confirmed by MACHO LEAL MD ([id number]) on 08/01/2017 4:57:29 PM Referred By: Confirmed By:MACHO LEAL MD
--- NOTE | 2017-08-01 19:27 | DS ---
Physical Examination Vital Signs: Vital Signs Temperature 97.9 F 08/01/17 14:15 Pulse Rate 69 08/01/17 14:15 Respiratory Rate 18 08/01/17 14:15 Blood Pressure 142/72 08/01/17 14:15 O2 Sat by Pulse Oximetry (%) 98 08/01/17 09:00 Constitutional: Yes: Calm, Pallor Cardiovascular: Yes: WNL Respiratory: Yes: WNL. No: Cough Edema: No Neurological: Yes: Alert, Oriented Labs: CBC, BMP 08/01/17 05:50 07/31/17 06:10 Discharge Summary Reason For Visit: LEUKOPENIA acute leukopenia. Acute thrombocytopenia. Chronic pain. Chronic and acute anxiety. Bilateral knee replacements. Bilateral hip replacements. GERDacute Hypertension acute Procedures: Principal: neutropenic isolation. Followup CBCs and blood cultures and viral and strep throat cultures Other Procedures: infectious disease and hematology consultations. Specialty hematology lab ordered as per [facility] Course: white count has improved to 3200, Platelets finally vernon above 80,000 202,000 this morning. Afebrile. Patient will followup with hematology as outpatient. I will followup specialty lab that is not available yet on the EMR. Condition: Stable - Instructions Diet, Activity, Other Instructions: Regular diet. Please call for appt. to see Dr. Cooney. If the appt. is more than 2weeks we will do blood counts weekly. Call for temps of 101 or over. Referrals: Jimenez Barker MD [Primary Care Provider] - Gui Cooney MD [Staff Physician] - Disposition: HOME - Home Medications Comprehensive Discharge Medication List: Ambulatory Orders Clonazepam [Klonopin -] 1 mg PO HS 01/17/12 Sertraline HCl [Zoloft] 100 mg PO HS 01/17/12 Atenolol [Tenormin -] 25 mg PO DAILY 07/15/13 Fenofibrate Nanocrystallized [Tricor] 60 mg PO DAILY 07/16/13 Amlodipine Besylate [Norvasc -] 5 mg PO DAILY 01/27/17 Famotidine [Pepcid -] 40 mg PO ASDIR 07/29/17 Acetaminophen [Tylenol .Regular Strength -] 650 mg PO Q6H PRN #0 tablet
[2017-08-04 00:07] LABS: A/G RATIO 1.2 (0.7-1.7); ALBUMIN 3.2 g/dL (2.9-4.4); ALPHA-1-GLOBULIN 0.2 g/dL (0.0-0.4); BETA GLOBULIN 0.9 g/dL (0.7-1.3); GAMMA GLOBULIN 1.1 g/dL (0.4-1.8); GLOBULIN, TOTAL 2.9 g/dL (2.2-3.9); M-SPIKE 0.3 g/dL (Not Observed); TOTAL PROTEIN 6.1 g/dL (6.0-8.5)
[2017-08-04 06:11] LABS: KAPPA/LAMBDA RATIO, UR 24.95 (2.04-10.37)
== END 2017-08-01 14:40 | disposition home or self-care (01) | DRG 813 ==
LOC: JER 15:50 → JERBED 17:41 → J7W 20:15
PROVIDERS: ADMIT Internal Medicine; ATTEND Internal Medicine
DX: D69.6 Thrombocytopenia, unspecified (principal); I10 Essential (primary) hypertension; D72.819 Decreased white blood cell count, unspecified; Z85.3 Personal history of malignant neoplasm of breast; E78.5 Hyperlipidemia, unspecified; F17.210 Nicotine dependence, cigarettes, uncomplicated; K21.9 Gastro-esophageal reflux disease without esophagitis; J20.9 Acute bronchitis, unspecified; G89.29 Other chronic pain; F41.9 Anxiety disorder, unspecified; Z96.653 Presence of artificial knee joint, bilateral; Z96.643 Presence of artificial hip joint, bilateral
CPT/HCPCS: 36415; 71010-TC; 71020-TC; 73502-TC-LT; 73552-TC-LT; 74020-TC; 80048; 80053; 80074; 81003; 82150; 82232; 82553; 82607; 82746; 82784; 82803; 83605; 83615; 83690; 83735; 83883; 84155; 84165; 84439; 84443; 84484; 85025; 85027; 85044; 85610; 85651; 85730; 86038; 86308; 86334; 86850; 86900; 86901; 87040; 87070; 87086; 87430; 87804; 93005; 93010; 99281-25; 99284-25

== ENCOUNTER 2018-05-26 17:42 | Observation (INO) | payer OTHER, MEDICARE ==
--- NOTE | 2018-05-26 17:56 | PDOC ---
Rapid Medical Evaluation Time Seen by Provider: 05/26/18 17:54 Medical Evaluation: Allergies Allergy/AdvReac Type Severity Reaction Status Date / Time No Known Drug Allergies Allergy Verified 05/26/18 17:51 bees Allergy Uncoded 05/26/18 17:51 tape Allergy Uncoded 05/26/18 17:51 Vital Signs Temp Pulse Resp BP Pulse Ox 98.3 F 78 19 148/111 98 05/26/18 17:51 05/26/18 17:51 05/26/18 17:51 05/26/18 17:51 05/26/18 17:51 05/26/18 17:54 I have performed a brief in-person evaluation of this patient. The patient presents with a chief complaint of:KAT x 2 weeks. Also reports intermittent wheezing and b/l LE swelling. No cough, f/c, CP, diaphoresis, palpitations, n/v. No recent cardiac w/u. >50 pack yr hx. PMD: Dr Barker Pertinent physical exam findings:appears mildly dyspneic when she talks in triage, sating 98% and stable otherwise, no sig edema I have ordered the following:ekg/cxr/labs The patient will proceed to the ED for further evaluation. 05/26/18 18:00 Discharge Disposition - Diagnosis KAT (dyspnea on exertion) - Referrals - Patient Instructions - Post Discharge Activity
--- NOTE | 2018-05-26 18:18 | PDOC ---
History of Present Illness - General Chief Complaint: Shortness of Breath Stated Complaint: S.O.B Time Seen by Provider: 05/26/18 17:54 - History of Present Illness Initial Comments: 05/26/18 18:18 Patient is a 77 year old female with a PMH of HTN, HLD, Breast CA (s/p lumpectomy, radiation - currently in remission) who presents to our ED today c/ o a 2 week h/o progressively worsening shortness breath. Patient states the shortness of breath started suddenly two weeks previous and she can only walk 15 -20 feet before she starts gasping for air. Notes associated palpitations denies chest pain, lightheadedness. No previous h/o similar symptoms. Patient states she had an echocardiogram and ECG last week at the request of her PMD, Dr. Barker. She believes everything was "normal." Patient's PMD advised her to schedule a stress test but she has not done so yet. H/o 1/2 ppd > 30 years. ROS is positive for chronic non-productive cough. Denies any recent travel, sick contacts. NKDA Surgical: lumpectomy, transvaginal mesh placement, R rotator cuff repair, B/L knee replacement Social: 1/2 ppd 30 years, denies alcohol, denies recreational drugs PMD: Dr. Barker Past History - Past Medical History Allergies/Adverse Reactions: Allergies Allergy/AdvReac Type Severity Reaction Status Date / Time No Known Drug Allergies Allergy Verified 05/26/18 17:51 bees Allergy Uncoded 05/26/18 17:51 tape Allergy Uncoded 05/26/18 17:51 Home Medications: Ambulatory Orders Sertraline HCl [Zoloft] 100 mg PO HS 01/17/12 Atenolol [Tenormin -] 25 mg PO DAILY 07/15/13 Fenofibrate Nanocrystallized [Tricor] 60 mg PO DAILY 07/16/13 Amlodipine Besylate [Norvasc -] 5 mg PO DAILY 01/27/17 Famotidine [Pepcid -] 40 mg PO ASDIR 07/29/17 Acetaminophen [Tylenol .Regular Strength -] 650 mg PO Q6H PRN #0 tablet Aspirin [ASA -] 81 mg PO DAILY 05/26/18 Omeprazole 20 mg PO ASDIR 05/26/18 Cancer: Yes (LEFT BREAST) COPD: No HTN: Yes Hypercholesterolemia: Yes - Surgical History Orthopedic Surgery: Yes (B/L TKR, B/L THR) - Suicide/Smoking/Psychosocial Hx Smoking Status: Yes Smoking History: Current every day smoker Years of Tobacco Use: 50 Have you smoked in the past 12 months: Yes Number of Cigarettes Smoked Daily: 10 Cigars Per Day: 0 Information on smoking cessation initiated: No Hx Alcohol Use: No Drug/Substance Use Hx: No Substance Use Type: None Hx Substance Use Treatment: No Review of Systems - Review of Systems Constitutional: No: Chills, Fever HEENTM: No: Blurred Vision, Double Vision Respiratory: Yes: Cough, Shortness of Breath. No: Stridor, Wheezing, Productive cough, Hemoptysis Cardiac (ROS): No: Chest Pain, Lightheadedness, Palpitations, Syncope ABD/GI: No: Constipated, Diarrhea, Nausea, Vomiting : No: Burning, Dysuria *Physical Exam - Vital Signs Last Vital Signs Temp Pulse Resp BP Pulse Ox 98.3 F 78 19 148/111 98 05/26/18 17:51 05/26/18 17:51 05/26/18 17:51 05/26/18 17:51 05/26/18 17:51 - Physical Exam General Appearance: Yes: Nourished, Obese Neck: positive: Trachea midline, Supple Respiratory/Chest: positive: Lungs Clear, Normal Breath Sounds, Crackles (L bibasilar). negative: Accessory Muscle Use, Labored Respiration, Rapid RR, Rales Cardiovascular: positive: S1, S2. negative: JVD Vascular Pulses: Dorsalis-Pedis (R): 2+, Doralis-Pedis (L): 2+ Musculoskeletal: negative: CVA Tenderness (R), CVA Tenderness (L) Extremity: positive: Normal Capillary Refill, Other (LLE edema) Integumentary: positive: Normal Color, Dry, Warm Neurologic: positive: Fully Oriented, Alert ED Treatment Course - LABORATORY CBC & Chemistry Diagram: 05/26/18 18:41 05/26/18 18:41 Medical Decision Making - Medical Decision Making 05/26/18 18:38 77 year old female presents with 2 week h/o dyspnea. RF of smoking and HTN. Recent cardiac work-up showed -- VS unremarkable. Frontal diagnosis: r/o ACS, new onset CHF, PNA, new onset COPD, PE, DVT. Heart Score 4. Wells Score 0. Basic labs, Troponin, EKG ordered in triage. Will obtain D-Dimer, B/L Duplex. Reasess. 05/26/18 18:44 ECG shows NSR HR 64, no ESTRELLA/STD/TWI, good R wave progression V1-V6. Non- ischemic ECG, c/w ECG of 05/09/18 05/26/18 18:56 L/E Doppler negative for DVT. 05/26/18 20:01 D-Dimer 700's - CTA pending. Patient counseled on POC. 05/26/18 22:33 CTA negative for clot. Will admit patient for further evaluation including stress testing and repeat RAI 05/27/18 00:02 Patient admitted to Obs Tele, Dr. Almaraz. Signout given to IM Resident (Dr. Bailey). *DC/Admit/Observation/Transfer Diagnosis at time of Disposition: KAT (dyspnea on exertion) - Referrals - Patient Instructions - Post Discharge Activity
[2018-05-26 18:49] LABS: BASO % 0.6 % (0-2.0); EOS % 2.4 % (0-4.5); HEMATOCRIT 36.7 % (32.4-45.2); HEMOGLOBIN 12.3 GM/dL (10.7-15.3); LYMPH % 18.5 % (8-40); MCH 31.5 pg (25.7-33.7); MCHC 33.6 g/dl (32.0-36.0); MEAN CELL VOLUME 93.7 fl (80-96); MONO % 7.3 % (3.8-10.2); NEUT % 71.2 % (42.8-82.8); PLATELET COUNT 200 K/MM3 (134-434); RBC 3.92 M/mm3 (3.60-5.2); RDW 14.1 % (11.6-15.6); WHITE BLOOD COUNT 4.4 K/mm3 (4.0-10.0)
[2018-05-26 19:16] LABS: INR 1.04 (0.82-1.09); PROTHROMBIN TIME (PATIENT) 11.7 SEC (9.7-13.0)
--- NOTE | 2018-05-26 19:23 | PDOC ---
Attending Attestation - Resident Resident Name: Gennaro Stackica - ED Attending Attestation I have performed the following: I have examined & evaluated the patient, The case was reviewed & discussed with the resident, I agree w/resident's findings & plan - HPI HPI: 05/26/18 19:17 77-year-old female with history of hypertension, high cholesterol, smoker, breast CA status post lumpectomy in remission presents now for persistent dyspnea on exertion over the last 2 weeks. Previously limited only by arthritis , over the last 2 weeks has noticed dyspnea after walking just 15-20 feet. No chest pain, no new cough, no fevers or chills. Patient had echo and EKG as part of outpatient workup with Dr. Barker, which were relatively unremarkable and notable only for mild LVH with EF of 55%. Patient is scheduled for outpatient stress test, has not happened yet. Of note, patient also began developing left leg swelling 3 weeks ago, had a Doppler at that time which was reportedly negative for DVT. No recent travel or surgeries. - Physicial Exam PE: 05/26/18 19:20 Vital signs are within normal limits, notably elevated diastolic blood pressure Well-appearing seated in stretcher speaking full sentences Heart is regular Slight left basilar inspiratory crackles, otherwise clear and symmetric with good air movement Belly is benign Left leg is notably edematous, nonpitting, tense with slight warmth but no erythema. Good distal pulses - Medical Decision Making 05/26/18 19:21 77-year-old female with new onset dyspnea on exertion for 2 weeks. Differential remains broad and includes cardiac etiology (for which she is at least moderate risk with HEART of 5), pulmonary could be underlying disease such as COPD given her extensive smoking history, rule out pneumonia, PE is on the differential particularly in light of DVT type symptoms. Labs including d-dimer and troponin Chest x-ray, left leg Doppler. Likely CTA chest Comfortable at rest, will need admission for further cardiac workup and monitoring Heart Score/ECG Review - History History: Moderately suspicious - Electrocardiogram EKG: Normal - Age Age: >/= 65 - Risk Factors Risk Factors Heart Score: Yes Hx Hypercholesterolemia, Yes Hx Hypertension, Yes Smoking History Based on the list above the patient has:: >/=3 risk factors or Hx atherosclerotic disease - Troponin Troponin: </= normal limit - Score Heart Score - Total: 5 #1 General ECG Interpretation: Sinus Rhythm, Normal Rate, Normal Intervals (qtc 425 ), No acute ischemic changes
[2018-05-26 19:47] LABS: ALBUMIN 3.6 g/dl (3.4-5.0); ANION GAP 8 (8-16); BLOOD UREA NITROGEN 17 mg/dL (7-18); CALCIUM 8.9 mg/dL (8.5-10.1); CHLORIDE 110 mmol/L (98-107); CO2 28 mmol/L (21-32); GLUCOSE,RANDOM 91 mg/dL (74-106); POTASSIUM 4.1 mmol/L (3.5-5.1); SGOT/AST 15 U/L (15-37); SODIUM 146 mmol/L (136-145)
[2018-05-26 19:52] LABS: ALK PHOS 63 U/L (45-117); BILIRUBIN,TOTAL 0.5 mg/dL (0.2-1.0); CREATININE 1.1 mg/dL (0.55-1.02); SGPT/ALT 17 U/L (12-78); TOT PROT 6.8 g/dl (6.4-8.2)
[2018-05-26 20:46] LABS: URINE APPEARANCE CLEAR; URINE BILIRUBIN NEGATIVE (<2.0 mg/dL); URINE COLOR YELLOW; URINE GLUCOSE (UA) NEGATIVE (NEGATIVE); URINE KETONE NEGATIVE (NEGATIVE); URINE LEUK ESTERASE NEGATIVE (NEGATIVE); URINE NITRITE NEGATIVE (NEGATIVE); URINE PROTEIN NEGATIVE (NEGATIVE)
[2018-05-26] MEDS ORDERED: SODIUM CHLORIDE 1,000 ML IV ONE (21:33)
--- NOTE | 2018-05-26 23:30 | HP ---
CHIEF COMPLAINT: SOB PCP: Dr Barker HISTORY OF PRESENT ILLNESS: Pt is a 77yo F with HTN, HLD, current smoker, breast CA s/p lumpectomy/ radiation/ chemotherapy presenting with worsening SOB and bilateral leg swelling over the last 2 weeks for which she called her PCP (Dr Barker) and was asked to come to the ED. Pt reports more acute worsening symptoms over past 2 days with dyspnea on with walking about 30 feet, no chest pain, no syncope. Pt denies new orthopnea/ PND. Pt has had chronic cough that has not changed in intensity (current smoker). She also endorses bilateral leg swelling. In the ED she was evaluated and ruled negative for PE. ER course was notable for: (1) CXR- no acute pathol (2) CTA- no PE, bibasilar atelectasis, with fibrosis (3) D dimer-over 783, (4) EKG- NSR HR 64, no ESTRELLA/STD/TWI, good R wave progression V1-V6. Non-ischemic , QTc- 425 Recent Travel: PAST MEDICAL HISTORY: HTN, HLD, current smoker, breast CA s/p lumpectomy/ radiation/ chemotherapy PAST SURGICAL HISTORY: Bilat arthroscopy, bilateral hip replacements Social History: Smoking: Current everyday smoker 30pack years (0.5packperday x60yrs) Alcohol: Minimal Drugs: Denies Family History: Allergies No Known Drug Allergies Allergy (Verified 05/26/18 17:51) bees Allergy (Uncoded 05/26/18 17:51) tape Allergy (Uncoded 05/26/18 17:51) HOME MEDICATIONS: Home Medications Medication Instructions Recorded Sertraline HCl [Zoloft] 100 mg PO HS 01/17/12 Atenolol [Tenormin -] 25 mg PO DAILY 07/15/13 Fenofibrate Nanocrystallized 60 mg PO DAILY 07/16/13 [Tricor] Amlodipine Besylate [Norvasc -] 5 mg PO DAILY 01/27/17 Famotidine [Pepcid -] 40 mg PO ASDIR 07/29/17 Acetaminophen [Tylenol .Regular 650 mg PO Q6H PRN #0 tablet 08/01/17 Strength -] Aspirin [ASA -] 81 mg PO DAILY 05/26/18 Omeprazole 20 mg PO ASDIR 07/13/18 REVIEW OF SYSTEMS CONSTITUTIONAL: Absent: fever, chills, diaphoresis, generalized weakness, malaise, loss of appetite, weight change HEENT: Absent: rhinorrhea, nasal congestion, throat pain, throat swelling, difficulty swallowing, mouth swelling, ear pain, eye pain, visual changes CARDIOVASCULAR: Absent: chest pain, syncope, palpitations, irregular heart rate, lightheadedness , peripheral edema RESPIRATORY: Absent: cough, shortness of breath+, dyspnea with exertion+, orthopnea, wheezing , stridor, hemoptysis GASTROINTESTINAL: Absent: abdominal pain, abdominal distension, nausea, vomiting, diarrhea, constipation, melena, hematochezia GENITOURINARY: Absent: dysuria, frequency, urgency, hesitancy, hematuria, flank pain, genital pain MUSCULOSKELETAL: Absent: myalgia, arthralgia, joint swelling, back pain, neck pain SKIN: Absent: rash, itching, pallor HEMATOLOGIC/IMMUNOLOGIC: Absent: easy bleeding, easy bruising, lymphadenopathy, frequent infections ENDOCRINE: Absent: unexplained weight gain, unexplained weight loss, heat intolerance, cold intolerance NEUROLOGIC: Absent: headache, focal weakness or paresthesias, dizziness, unsteady gait, seizure, mental status changes, bladder or bowel incontinence PSYCHIATRIC: Absent: anxiety, depression, suicidal or homicidal ideation, hallucinations. PHYSICAL EXAMINATION Vital Signs - 24 hr 05/26/18 17:51 Temperature 98.3 F Pulse Rate 78 Respiratory 19 Rate Blood Pressure 148/111 O2 Sat by Pulse 98 Oximetry (%) GENERAL: Awake, alert, and fully oriented, in no acute respiratory distress, sitting comfortably and sating well on RA. EYES: Pupils equal, round and reactive to light NECK: No JVD LUNGS: Breath sounds equal, Scanty basal crepitations HEART: Regular rate and rhythm, normal S1 and S2 without murmur ABDOMEN: Soft, nontender, not distended, normoactive bowel sounds MUSCULOSKELETAL: Normal range of motion at all joints. No bony deformities or tenderness. No CVA tenderness. LOWER EXTREMITIES: 2+ pulses, warm, well-perfused. No calf tenderness. trace bilat edema. NEUROLOGICAL: AAOx 3, no lateralizing signs, normal speech PSYCHIATRIC: Cooperative. Laboratory Results - last 24 hr 05/26/18 05/26/18 05/26/18 18:41 18:41 18:41 WBC 4.4 RBC 3.92 Hgb 12.3 Hct 36.7 MCV 93.7 MCH 31.5 MCHC 33.6 RDW 14.1 Plt Count 200 MPV 9.0 Absolute Neuts (auto) 3.2 Neutrophils % 71.2 Lymphocytes % 18.5 Monocytes % 7.3 Eosinophils % 2.4 Basophils % 0.6 Nucleated RBC % 0 PT with INR INR D-Dimer Sodium 146 H Potassium 4.1 Chloride 110 H Carbon Dioxide 28 Anion Gap 8 BUN 17 Creatinine 1.1 H Creat Clearance w eGFR 48.29 Random Glucose 91 Calcium 8.9 Total Bilirubin 0.5 AST 15 ALT 17 Alkaline Phosphatase 63 Creatine Kinase 84 Troponin I < 0.02 B-Natriuretic Peptide 917.61 H Total Protein 6.8 Albumin 3.6 TSH Urine Color Urine Appearance Urine pH Ur Specific [place] Urine Protein Urine Glucose (UA) Urine Ketones Urine Blood Urine Nitrite Urine Bilirubin Urine Urobilinogen Ur Leukocyte Esterase 05/26/18 05/26/18 05/26/18 18:41 18:57 18:57 WBC RBC Hgb Hct MCV MCH MCHC RDW Plt Count MPV Absolute Neuts (auto) Neutrophils % Lymphocytes % Monocytes % Eosinophils % Basophils % Nucleated RBC % PT with INR 11.70 INR 1.04 D-Dimer 783 H Sodium Potassium Chloride Carbon Dioxide Anion Gap BUN Creatinine Creat Clearance w eGFR Random Glucose Calcium Total Bilirubin AST ALT Alkaline Phosphatase Creatine Kinase Troponin I B-Natriuretic Peptide Total Protein Albumin TSH 1.44 Urine Color Urine Appearance Urine pH Ur Specific [place] Urine Protein Urine Glucose (UA) Urine Ketones Urine Blood Urine Nitrite Urine Bilirubin Urine Urobilinogen Ur Leukocyte Esterase 05/26/18 20:30 WBC RBC Hgb Hct MCV MCH MCHC RDW Plt Count MPV Absolute Neuts (auto) Neutrophils % Lymphocytes % Monocytes % Eosinophils % Basophils % Nucleated RBC % PT with INR INR D-Dimer Sodium Potassium Chloride Carbon Dioxide Anion Gap BUN Creatinine Creat Clearance w eGFR Random Glucose Calcium Total Bilirubin AST ALT Alkaline Phosphatase Creatine Kinase Troponin I B-Natriuretic Peptide Total Protein Albumin TSH Urine Color Yellow Urine Appearance Clear Urine pH 6.0 Ur Specific [place] 1.020 Urine Protein Negative Urine Glucose (UA) Negative Urine Ketones Negative Urine Blood Negative Urine Nitrite Negative Urine Bilirubin Negative Urine Urobilinogen 2.0 H Ur Leukocyte Esterase Negative Ambulatory Orders Sertraline HCl [Zoloft] 100 mg PO HS 01/17/12 Atenolol [Tenormin -] 25 mg PO DAILY 07/15/13 Fenofibrate Nanocrystallized [Tricor] 60 mg PO DAILY 07/16/13 Amlodipine Besylate [Norvasc -] 5 mg PO DAILY 01/27/17 Famotidine [Pepcid -] 40 mg PO ASDIR 07/29/17 Acetaminophen [Tylenol .Regular Strength -] 650 mg PO Q6H PRN #0 tablet Aspirin [ASA -] 81 mg PO DAILY 05/26/18 Omeprazole 20 mg PO ASDIR 05/26/18 Albuterol Sulfate [Proair Hfa] 8.5 gm IH Q4H PRN #1 hfa.aer.ad 05/27/18 Tiotropium [place] [Spiriva] 1 inh IH DAILY #1 inh 05/27/18 ASSESSMENT/PLAN: Pt is a 77yo F with HTN, HLD, current smoker, breast CA s/p lumpectomy/ radiation/ chemotherapy presenting with worsening SOB and bilateral leg swelling over the last 2 weeks freferred to ED by her PCP (Dr Barker) SOB Was thought to have worsened more recently, with hx of cancer and smoking Well's score for PE-3 (PE likely) PE was ruled out Pt hemodynamically stable Elevated ddimer-783, negative CTA Negative tropsx1, trend No chest pain No evidence of fluid overload ECHO- echo 04/2018: mod lvh, nl lv/rv, mild mr/tr CArdio consult For outpt stress test ASA No evidence of overload at this time, but hold IVf No need to diurese- BNP Could be due to COPD COPD SOB Not in acute exacerbation Cont home spiriva HTN Cont home medications HLD, Cont fenofibrate current smoker Smoking cessation counseling breast CA s/p lumpectomy/ radiation/ chemotherapy In remission FEN Hold fluids Monitor electrolytes Salt restricted diet PPx heparin sq Dispo Tele obs for likely dc in am Visit type - Emergency Visit Emergency Visit: Yes ED Registration Date: 05/26/18 Care time: The patient presented to the Emergency Department on the above date and was hospitalized for further evaluation of their emergent condition. - New Patient This patient is new to me today: Yes Date on this admission: 05/27/18 - Critical Care Critical Care patient: No Hospitalist Screening - Colonoscopy Questionnaire Colonoscopy Questionnaire: Colonoscopy Questionnaire - Patient: 50 - 75 years old and never had a screening colonoscopy: Unknown History of colon or rectal polyps, or CA: Unknown History of IBD, Crohn's disease or UC: Unknown History of abdominal radiation therapy as a child: Unknown - Relative: 1 with colon or rectal CA, or polyps at age 60 or younger: No Colon or rectal CA diagnosed at age 45 or younger: No Multiple relatives with colon or rectal CA: No - Outcome: Screening Result: Negative Screen
[2018-05-27] MEDS ORDERED: ACETAMINOPHEN 325 MG TABLET (FP) PO PRN (01:25)
[2018-05-27 01:54] VITALS: BMI 33.7
[2018-05-27] MEDS ORDERED: PT OWN MED DRAWER 7, Y5N ONE (09:06)
[2018-05-27] MEDS ORDERED: PANTOPRAZOLE 20 MG TABLET (FP) PO SCH (10:00)
[2018-05-27] MEDS ORDERED: ASPIRIN 81 MG CHEWABLE TABLETS PO SCH (10:00)
[2018-05-27] MEDS ORDERED: amLODIPine BESYLATE 5 MG TABLET (FP) PO SCH (10:00)
[2018-05-27] MEDS ORDERED: ATENOLOL 25 MG TABLET (FP) PO SCH (10:00)
[2018-05-27] MEDS ORDERED: FENOFIBRIC ACID 45 MG CAP PO SCH (10:00)
[2018-05-27 11:20] VITALS: BP 143/78; PULSE 72; TEMP 98
--- NOTE | 2018-05-27 12:10 | CON.CARD ---
Cardiology Consult (text) - Consultation Consultation Note: s: sob hpi: 77 f hx smoking, copd, htn, hld here with sob. Past few weeks has noticed mild lee. No cp, rest sob, palps, dizzy, loc, pnd, orhtopnea, le edema. No hx hrt dz. Feeling fell today, asking to go home. pmh: per hpi psh: knee surgery social: +tob ros: per hpi; no nvd fever martinez vision changes, gib hematuria dysuria muscle pain fam: no premature cad, scd meds: Home Medications Medication Instructions Recorded Sertraline HCl [Zoloft] 100 mg PO HS 01/17/12 Atenolol [Tenormin -] 25 mg PO DAILY 07/15/13 Fenofibrate Nanocrystallized 60 mg PO DAILY 07/16/13 [Tricor] Amlodipine Besylate [Norvasc -] 5 mg PO DAILY 01/27/17 Famotidine [Pepcid -] 40 mg PO ASDIR 07/29/17 Acetaminophen [Tylenol .Regular 650 mg PO Q6H PRN #0 tablet 08/01/17 Strength -] Aspirin [ASA -] 81 mg PO DAILY 05/26/18 Omeprazole 20 mg PO ASDIR 05/26/18 pe: Vital Signs Period Temp Pulse Resp BP Sys/Sanchez Pulse Ox Last 24 Hr 97.7 F-98.3 F 67-78 16-20 101-148/58-111 95-98 nad no jvd rrr s1s2 no mrg cta bl nl eff aaox3 no le e/c/c abd nt nd pos bs no jaundice diaphoresis pos dp pt no carotid bruits Laboratory Last Values WBC 4.4 K/mm3 (4.0-10.0) 05/26/18 18:41 RBC 3.92 M/mm3 (3.60-5.2) 05/26/18 18:41 Hgb 12.3 GM/dL (10.7-15.3) 05/26/18 18:41 Hct 36.7 % (32.4-45.2) 18 18:41 MCV 93.7 fl (80-96) 18 18:41 MCH 31.5 pg (25.7-33.7) 05/26/18 18:41 MCHC 33.6 g/dl (32.0-36.0) 05/26/18 18:41 RDW 14.1 % (11.6-15.6) 05/26/18 18:41 Plt Count 200 K/MM3 (134-434) 05/26/18 18:41 MPV 9.0 fl (7.5-11.1) 05/26/18 18:41 Absolute Neuts (auto) 3.2 # 05/26/18 18:41 Neutrophils % 71.2 % (42.8-82.8) 05/26/18 18:41 Lymphocytes % 18.5 % (8-40) 05/26/18 18:41 Monocytes % 7.3 % (3.8-10.2) 05/26/18 18:41 Eosinophils % 2.4 % (0-4.5) 05/26/18 18:41 Basophils % 0.6 % (0-2.0) 05/26/18 18:41 Nucleated RBC % 0 % (0-0) 05/26/18 18:41 PT with INR 11.70 SEC (9.7-13.0) 05/26/18 18:57 INR 1.04 (0.82-1.09) 05/26/18 18:57 D-Dimer 783 ng/ml (0-500) H 05/26/18 18:57 Sodium 146 mmol/L (136-145) H 05/26/18 18:41 Potassium 4.1 mmol/L (3.5-5.1) 05/26/18 18:41 Chloride 110 mmol/L (98-107) H 05/26/18 18:41 Carbon Dioxide 28 mmol/L (21-32) 05/26/18 18:41 Anion Gap 8 (8-16) 05/26/18 18:41 BUN 17 mg/dL (7-18) 05/26/18 18:41 Creatinine 1.1 mg/dL (0.55-1.02) H 05/26/18 18:41 Creat Clearance w eGFR 48.29 (>60) 05/26/18 18:41 Random Glucose 91 mg/dL (74-106) 05/26/18 18:41 Calcium 8.9 mg/dL (8.5-10.1) 05/26/18 18:41 Total Bilirubin 0.5 mg/dL (0.2-1.0) 05/26/18 18:41 AST 15 U/L (15-37) 05/26/18 18:41 ALT 17 U/L (12-78) 05/26/18 18:41 Alkaline Phosphatase 63 U/L (45-117) 05/26/18 18:41 Creatine Kinase 84 IU/L (26-192) 05/26/18 23:50 Troponin I < 0.02 ng/ml (0.00-0.05) 05/26/18 23:50 B-Natriuretic Peptide 917.61 pg/ml (5-450) H 05/26/18 18:41 Total Protein 6.8 g/dl (6.4-8.2) 05/26/18 18:41 Albumin 3.6 g/dl (3.4-5.0) 05/26/18 18:41 TSH 1.44 uIU/ml (0.358-3.74) 05/26/18 18:41 Urine Color Yellow 05/26/18 20:30 Urine Appearance Clear 05/26/18 20:30 Urine pH 6.0 (5.0-8.0) 05/26/18 20:30 Ur Specific [place] 1.020 (1.001-1.035) 05/26/18 20:30 Urine Protein Negative (NEGATIVE) 05/26/18 20:30 Urine Glucose (UA) Negative (NEGATIVE) 05/26/18 20:30 Urine Ketones Negative (NEGATIVE) 05/26/18 20:30 Urine Blood Negative (NEGATIVE) 05/26/18 20:30 Urine Nitrite Negative (NEGATIVE) 05/26/18 20:30 Urine Bilirubin Negative (<2.0 mg/dL) 05/26/18 20:30 Urine Urobilinogen 2.0 mg/dL (0.2-1.0) H 05/26/18 20:30 Ur Leukocyte Esterase Negative (NEGATIVE) 05/26/18 20:30 tele: sr, occ pvcs cta chest: no pe, clear lungs echo 04/2018: mod lvh, nl lv/rv, mild mr/tr ecg: sr nl intervals, no ischemic changes a/p: 77 f hx smoking, copd, htn, hld here with sob. sob: -no signs chf or acs -recent echo unremarkable -ecg, tele benign here -possibly 2/2 copd, she says spiriva had helped in past but she self d/c'ed in past -copd tx per pmd -pt was sent for outpt stress test by pmd, still pending, can be done as outpt htn: -cont home meds hld: -cont fibrate cardiac lewis ok for dc
--- NOTE | 2018-05-27 12:32 | DS ---
Physical Examination Vital Signs: Vital Signs Temperature 98.0 F 05/27/18 10:00 Pulse Rate 72 05/27/18 10:00 Respiratory Rate 20 05/27/18 10:00 Blood Pressure 143/78 05/27/18 10:00 O2 Sat by Pulse Oximetry (%) 95 05/27/18 10:00 Constitutional: Yes: Well Nourished, No Distress, Calm Eyes: Yes: Conjunctiva Clear, EOM Intact, PERRL HENT: Yes: Atraumatic, Normocephalic Neck: Yes: Supple, Trachea Midline Cardiovascular: Yes: Regular Rate and Rhythm, S1, S2. No: Murmur Respiratory: Yes: Regular, CTA Bilaterally. No: Rales, Rhonchi, Wheezes Gastrointestinal: Yes: Normal Bowel Sounds, Soft. No: Distention, Tenderness Edema: No Neurological: Yes: Alert, Oriented Labs: CBC, BMP 05/26/18 18:41 05/26/18 18:41 Discharge Summary Reason For Visit: DYSPNEA ON EXERTION Current Active Problems KAT (dyspnea on exertion) (Acute) Hospital Course: 77 yo female, presented to hospital with KAT. Was admitted to observation for r /o ACS. Cardiac enzymes have been negative and patient had recent echo with cardio that was unremarkable. Patient never had chest pain. Seen by cardio and can do stress test as outpatient. KAT likely due to COPD. Patient had seen Dr Galicia in the past and was on Spiriva which she had stopped a long time ago. Will discharge with Spiriva daily and prn Proair inhaler. Condition: Good - Instructions Referrals: Jimenez Barker MD [Primary Care Provider] - - Home Medications Comprehensive Discharge Medication List: Ambulatory Orders Sertraline HCl [Zoloft] 100 mg PO HS 01/17/12 Atenolol [Tenormin -] 25 mg PO DAILY 07/15/13 Fenofibrate Nanocrystallized [Tricor] 60 mg PO DAILY 07/16/13 Amlodipine Besylate [Norvasc -] 5 mg PO DAILY 01/27/17 Famotidine [Pepcid -] 40 mg PO ASDIR 07/29/17 Acetaminophen [Tylenol .Regular Strength -] 650 mg PO Q6H PRN #0 tablet Aspirin [ASA -] 81 mg PO DAILY 05/26/18 Omeprazole 20 mg PO ASDIR 05/26/18 Albuterol Sulfate [Proair Hfa] 8.5 gm IH Q4H PRN #1 hfa.aer.ad 05/27/18 Tiotropium [place] [Spiriva] 1 inh IH DAILY #1 inh 05/27/18
[2018-05-27] MEDS ORDERED: SERTRALINE HCL 50 MG TABLET (FP) PO SCH (22:00)
--- NOTE | 2018-05-29 20:25 | EKG ---
Test Reason : Blood Pressure : / mmHG Vent. Rate : 064 BPM Atrial Rate : 064 BPM P-R Int : 190 ms QRS Dur : 086 ms QT Int : 412 ms P-R-T Axes : 062 025 032 degrees QTc Int : 425 ms NORMAL SINUS RHYTHM NORMAL ECG WHEN COMPARED WITH ECG OF 09-MAY-2018 09:35, NO SIGNIFICANT CHANGE WAS FOUND Confirmed by MD FERNANDO, FE ([id number]) on 05/29/2018 8:24:49 PM Referred By: Confirmed By:FE KING MD
== END 2018-05-27 13:04 | disposition home or self-care (01) ==
LOC: JER 17:42 → JERBED 21:58 → J4S 05-27 01:17
PROVIDERS: ADMIT Internal Medicine; ATTEND Internal Medicine
PROC: 3E033GC Introduction of Other Therapeutic Substance into Peripheral Vein, Percutaneous Approach (ICD-10-PCS; principal; 2018-05-26)
DX: R06.00 Dyspnea, unspecified (principal); I10 Essential (primary) hypertension; E78.5 Hyperlipidemia, unspecified; F17.210 Nicotine dependence, cigarettes, uncomplicated; E66.9 Obesity, unspecified; J44.9 Chronic obstructive pulmonary disease, unspecified; Z68.33 Body mass index [BMI] 33.0-33.9, adult; Z85.3 Personal history of malignant neoplasm of breast; Z91.038 Other insect allergy status
CPT/HCPCS: 36415; 71046-TC-FY; 71275-TC; 80053; 81003; 82550; 83880; 84443; 84484; 85025; 85379; 85610; 93005; 93010; 93970-TC; 96360; 99285-25; G0378; J7030

== ENCOUNTER 2018-08-17 21:27 | Emergency (ER) | payer OTHER, MEDICARE ==
[2018-08-17 21:31] VITALS: BP 156/71; PULSE 87; TEMP 98.2; BMI 33.0
--- NOTE | 2018-08-17 21:31 | PDOC ---
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 Pt denies being on anticoagulants except ASA. Pt's tetanus is not UTD. I have performed a brief in- person evaluation of this patient. Pertinent Physical Findings: Skin: 1 cm lac to distal aspect of first digit left hand. Bleeding controlled Lungs: Clear Heart: RRR MS: moves all extremities Neuro: Alert Psych: Appropriate affect The patient will proceed to: FTK for lac repair Discharge Disposition - Diagnosis Laceration - Referrals Referrals: Jimenez Barker MD [Primary Care Provider] - - Patient Instructions - Post Discharge Activity
[2018-08-17] MEDS ORDERED: DIPHTH,PERTUSS(ACELL),TET 0.5 ML DISP.SYRIN IM ONE (23:18)
--- NOTE | 2018-08-17 23:18 | PDOC ---
History of Present Illness - General Chief Complaint: Laceration Stated Complaint: LACERATION Time Seen by Provider: 08/17/18 21:28 History Source: Patient Exam Limitations: No Limitations - History of Present Illness Initial Comments: 08/17/18 23:33 Patient is a 78-year-old female who presents emergency department today for a laceration to her left thumb. Patient states that she was taking down a picture frame when it broke and the glass cut her finger. Does not remove the date of her last tetanus shot. Denies fevers, chills, numbness and tingling to the extremity. Bleeding controlled prior to ER visit. Past History - Travel Traveled outside of the country in the last 30 days: No Close contact w/someone who was outside of country & ill: No - Past Medical History Allergies/Adverse Reactions: Allergies Allergy/AdvReac Type Severity Reaction Status Date / Time No Known Drug Allergies Allergy Verified 08/17/18 21:31 bees Allergy Uncoded 08/17/18 21:31 tape Allergy Uncoded 08/17/18 21:31 Home Medications: Ambulatory Orders Sertraline HCl [Zoloft] 100 mg PO HS 01/17/12 Atenolol [Tenormin -] 25 mg PO DAILY 07/15/13 Fenofibrate Nanocrystallized [Tricor] 60 mg PO DAILY 07/16/13 Amlodipine Besylate [Norvasc -] 5 mg PO DAILY 01/27/17 Aspirin [ASA -] 81 mg PO DAILY 05/26/18 Omeprazole 20 mg PO ASDIR 05/26/18 Cancer: Yes (LEFT BREAST) COPD: No HTN: Yes Hypercholesterolemia: Yes - Surgical History Abdominal Surgery: Yes Orthopedic Surgery: Yes (B/L TKR, B/L THR) - Suicide/Smoking/Psychosocial Hx Smoking Status: Yes Smoking History: Current some day smoker Years of Tobacco Use: 50 Have you smoked in the past 12 months: Yes Number of Cigarettes Smoked Daily: 10 Cigars Per Day: 0 Information on smoking cessation initiated: Yes 'Breaking Loose' booklet given: 05/27/18 Hx Alcohol Use: No Drug/Substance Use Hx: No Substance Use Type: None Hx Substance Use Treatment: No Review of Systems - Review of Systems Able to Perform ROS?: Yes Comments:: 08/17/18 23:33 CONSTITUTIONAL: Absent: fever, chills, diaphoresis, generalized weakness, malaise, loss of appetite SKIN: Present: Laceration to L thumb Absent: rash, itching, pallor HEMATOLOGIC/IMMUNOLOGIC: Absent: easy bleeding, easy bruising, lymphadenopathy, frequent infections ENDOCRINE: Absent: unexplained weight gain, unexplained weight loss, heat intolerance, cold intolerance NEUROLOGIC: Absent: headache, focal weakness or paresthesias, dizziness, unsteady gait, seizure, mental status changes, bladder or bowel incontinence PSYCHIATRIC: Absent: anxiety, depression, suicidal or homicidal ideation, hallucinations. Is the patient limited Arabic proficient: No *Physical Exam - Vital Signs Last Vital Signs Temp Pulse Resp BP Pulse Ox 98.2 F 87 18 156/71 96 08/17/18 21:28 08/17/18 21:28 08/17/18 21:28 08/17/18 21:28 08/17/18 21:28 - Physical Exam Comments: 08/17/18 23:34 GENERAL: The patient is awake, alert, and fully oriented, in no acute distress. HEAD: Normal with no signs of trauma. EYES: Pupils equal, round and reactive to light, extraocular movements intact, sclera anicteric, conjunctiva clear. EXTREMITIES: Normal range of motion, no edema. NEUROLOGICAL: Normal speech, normal gait. PSYCH: Normal mood, normal affect. SKIN: 1.5 cm stellate laceration to the L distal palmar thumb. Warm, Dry, normal turgor, no rashes or lesions noted. Procedures - Laceration/Wound Repair Left Lateral 1st digit Wound Length: to 2.5 cm Wound Explored: clean, no foreign body present Wound's Depth, Shape: superficial, stellate Irrigated w/ Saline: Yes Betadine Prep: Yes Anesthesia: 1% Lidocaine Amount of Anesthetic (ccs): 2 (digital block) Wound Debrided: minimal Wound Repaired With: Sutures, Dermabond Suture Size/Type: 5:0 Number of Sutures: 3 (Simple interrupted) Sterile Dressing Applied: Yes Medical Decision Making - Medical Decision Making 08/17/18 23:36 Patient is a 78-year-old female who presents emergency department today for laceration to her left distal thumb. Full range of motion and patient able to fully flex and extend thumb. No range of motion defects. 1.5 superficial stellate lack to the left distal thumb. Partial anesthesia was achieved. Patient states she has high tolerance for anesthetics and would prefer to just have her wound closed at this time. Wound was explored and cleaned. No foreign bodies present. 3 simple interrupted sutures placed along the palmar aspect of the laceration. The other portion of the stellate flap along the nailbed. No fluid. To grab for a stitch so the area along the nailbed was Dermabond. Patient are procedure well. Discharged home. Pt instructed to return in 7 days to have the stitches removed. I discussed the physical exam findings, ancillary test results and final diagnoses with the patient. I answered all of the patient's questions. The patient was satisfied with the care received and felt comfortable with the discharge plan and treatment plan. The Patient agrees to follow up with the primary care physician/specialist within 24-72 hours. Return precautions were given. *DC/Admit/Observation/Transfer Diagnosis at time of Disposition: Laceration - Discharge Dispostion Disposition: HOME Condition at time of disposition: Stable Decision to Admit order: No - Referrals Referrals: Jimenez Barker MD [Primary Care Provider] - - Patient Instructions Printed Discharge Instructions: DI for Laceration Repair Additional Instructions: You had your cut fixed today with stitches. Please return in 7 days to have your stitches removed. Your tetanus shot was updated today. Avoid soaking the hand. Keep it dry when showering. Wearing gloves may help Please keep the area clean and pat dry. You may take Tylenol or Motrin as needed for pain. Return to the emergency department sooner if you have area of redness around the site, purulent drainage, fevers, or have any changes in your symptoms. - Post Discharge Activity
== END 2018-08-17 23:25 | disposition home or self-care (01) ==
LOC: JERFT 21:27
PROC: 3E0234Z Introduction of Serum, Toxoid and Vaccine into Muscle, Percutaneous Approach (ICD-10-PCS; principal; 2018-08-17)
PROC: 0HQGXZZ Repair Left Hand Skin, External Approach (ICD-10-PCS; 2018-08-17)
DX: S61.012A Laceration without foreign body of left thumb without damage to nail, initial encounter (principal); W25.XXXA Contact with sharp glass, initial encounter; Y93.89 Activity, other specified; Y92.038 Other place in apartment as the place of occurrence of the external cause; Y99.8 Other external cause status; I10 Essential (primary) hypertension; E78.00 Pure hypercholesterolemia, unspecified; Z96.643 Presence of artificial hip joint, bilateral; Z96.653 Presence of artificial knee joint, bilateral; Z85.3 Personal history of malignant neoplasm of breast
CPT/HCPCS: 90715; 99281-25

== ENCOUNTER 2023-02-11 19:31 | Emergency (ER) | payer OTHER, MEDICARE ==
[2023-02-11 19:41] VITALS: BP 147/113; PULSE 97; RESP 18; TEMP 98; BMI 30.8
[2023-02-11] MEDS ORDERED: METOCLOPRAMIDE HCL INJECTION 10 MG/2 ML VIAL IVPUSH ONE (20:26)
[2023-02-11] MEDS ORDERED: ACETAMINOPHEN 1000 MG/100 ML BAG IVPB ONE (20:26)
[2023-02-11] MEDS ORDERED: METOCLOPRAMIDE HCL INJECTION 10 MG/2 ML VIAL ONE (20:45)
[2023-02-11] MEDS ORDERED: ACETAMINOPHEN INJECTION 100 ML IVPB ONE (20:45)
[2023-02-11] MEDS ORDERED: KETOROLAC TROMETHAMINE 15 MG/ML VIAL IVPUSH ONE (22:29)
[2023-02-11] MEDS ORDERED: KETOROLAC TROMETHAMINE 15 MG/ML VIAL ONE (22:32)
== END 2023-02-12 00:15 | disposition home or self-care (01) ==
LOC: JER 19:31
PROC: 3E033NZ Introduction of Analgesics, Hypnotics, Sedatives into Peripheral Vein, Percutaneous Approach (ICD-10-PCS; principal; 2023-02-11)
PROC: 3E0333Z Introduction of Anti-inflammatory into Peripheral Vein, Percutaneous Approach (ICD-10-PCS; 2023-02-11)
PROC: 3E033GC Introduction of Other Therapeutic Substance into Peripheral Vein, Percutaneous Approach (ICD-10-PCS; 2023-02-11)
DX: R51.9 Headache, unspecified (principal); I10 Essential (primary) hypertension
CPT/HCPCS: 70450-TC; 93005; 93010; 99284-25

== ENCOUNTER 2024-03-03 12:51 | Emergency (ER) | payer OTHER, MEDICARE ==
[2024-03-03 12:58] VITALS: RESP 18; TEMP 97.6; BMI 29.7
[2024-03-03] MEDS ORDERED: ACETAMINOPHEN 500 MG TABLET (FP) ONE ×2 (14:09→14:22)
[2024-03-03] MEDS: ACETAMINOPHEN 500 MG TABLET (FP) PO ONE (14:15)
[2024-03-03 14:24] LABS: BASO % 0.4 % (0-2.0); EOS % 1.1 % (0-4.5); HEMATOCRIT 33.2 % (32.4-45.2); HEMOGLOBIN 10.7 GM/dL (10.7-15.3); LYMPH % 7.7 % (8-40); MCH 27.9 pg (25.7-33.7); MCHC 32.3 g/dl (32.0-36.0); MEAN CELL VOLUME 86.6 fl (80-96); MEAN PLT VOLUME 8.8 fl (7.5-11.1); MONO % 6.2 % (3.8-10.2); NEUT % 84.6 % (42.8-82.8); PLATELET COUNT 256 10^3/uL (134-434); RBC 3.84 M/mm3 (3.60-5.2); RDW 15.6 % (11.6-15.6); WHITE BLOOD COUNT 7.6 K/mm3 (4.0-10.0)
[2024-03-03 14:34] LABS: ACTIVATED PTT 46.9 SECONDS (25.2-36.5); INR 2.57 (0.83-1.09); PROTHROMBIN TIME (PATIENT) 29.5 SEC (9.7-13.0)
[2024-03-03 14:44] LABS: POTASSIUM 3.2 mmol/L (3.5-5.1)
[2024-03-03 14:45] LABS: CALCIUM 9.2 mg/dL (8.5-10.1)
[2024-03-03 14:47] LABS: ALBUMIN 2.7 g/dl (3.4-5.0); BLOOD UREA NITROGEN 14.6 mg/dL (7-18)
[2024-03-03 14:50] LABS: CREATININE 0.8 mg/dL (0.55-1.3)
[2024-03-03 14:51] LABS: TOT PROT 6.3 g/dl (6.4-8.2)
[2024-03-03 15:08] LABS: ERYTHROCYTE SEDIMENTATION RATE 64 mm/hr (0-30)
[2024-03-03 18:22] VITALS: BP 137/59; PULSE 95
== END 2024-03-03 18:40 | disposition home or self-care (01) ==
LOC: JER 12:51
DX: M79.641 Pain in right hand (principal); M79.642 Pain in left hand; R11.0 Nausea; R22.31 Localized swelling, mass and lump, right upper limb
CPT/HCPCS: 36415; 73110-TC-LT-FY; 73110-TC-RT-FY; 73130-TC-LT-FY; 73130-TC-RT-FY; 80053; 85025; 85610; 85651; 85730; 86140; 93970-TC; 99285-25

== ENCOUNTER 2024-03-19 11:49 | Emergency (ER) | payer OTHER, MEDICARE ==
[2024-03-19 11:58] VITALS: BP 146/72; PULSE 91; RESP 17; TEMP 98; BMI 29.7
[2024-03-19] MEDS ORDERED: ACETAMINOPHEN 325 MG TABLET (FP) ONE (12:50)
[2024-03-19] MEDS ORDERED: LIDOCAINE 4% PATCH TP ONE (12:51)
[2024-03-19] MEDS: ACETAMINOPHEN 325 MG TABLET (FP) PO ONE (13:00)
[2024-03-19] MEDS: LIDOCAINE 4% PATCH TP ONE (13:00)
[2024-03-19] MEDS ORDERED: LIDOCAINE PATCH REMOVAL MC ONE (22:00)
== END 2024-03-19 16:45 | disposition left against medical advice (07) ==
LOC: JER 11:49
DX: S22.41XA Multiple fractures of ribs, right side, initial encounter for closed fracture (principal); W01.0XXA Fall on same level from slipping, tripping and stumbling without subsequent striking against object, initial encounter
CPT/HCPCS: 71250-TC; 93005; 93010; 99284-25